=== PATIENT | female | born 1965 | race Caucasian/White ===

== ENCOUNTER 2017-09-15 15:59 | Emergency (ER) | payer SELFPAY ==
[~2017-09-15] VITALS: Ht 177.8 cm; Wt 62.0 kg
[~2017-09-15 15:59] MED LIST: OXYC-360 PO; Z.0.NO CURRENT MEDS
[2017-09-15 16:00] VITALS: BP 171/112; PULSE 102; RESP 16; TEMP 98.8; O2SAT 97
[2017-09-15 19:32] VITALS: BP 173/91; PULSE 98; RESP 16; TEMP 98; O2SAT 97
[2017-09-15] MEDS ORDERED: XANA1TAB2 PO (19:32)
[2017-09-15] MEDS ORDERED: ADDE10 PO (19:32)
[2017-09-15] MEDS ORDERED: FLUT50SP EACH NARE (19:47)
[2017-09-15] MEDS ORDERED: DOXY100C PO (19:47)
[2017-09-15] MEDS ORDERED: TYLETAB34 PO (19:47)
--- NOTE | 2017-09-15 19:47 | PD ---
HPI Chief Complaint: Oral / Dental Pain or Problem Time Seen by Provider: 19:26 Travel History International Travel<30 days: No Contact w/Intl Traveler<30days: No Traveled to known affect area: No History of Present Illness HPI Patient is a 52 year old female presenting for evaluation of sinus pressure, nasal congestion, rhinorrhea, facial swelling that has been ongoing for the last 3 days. Pt reports a hx of sinusitis. She is not currently taking any medications. She has not taken any medications to alleviate the pain. Symptoms are worse when laying down. She reports the pain is pressure like and a 5/10. She has no alleviating factors, onset was gradual over the last few days. She denies any fevers, chills, nausea, vomiting. She reports a very slight frontal headache. There is no photophobia, phonophobia, visual changes. She denies any dental pain. Patient reports a history of white coat syndrome. PFSH Past Medical History Depression: Yes Cardiac Catheterization: Yes Diminished Hearing: No Medical other: Yes (insomnia) Immunizations Current: Yes Tetanus Vaccination: Unknown Influenza Vaccination: No ?: Not Social History Alcohol Use: Yes (RARELY) Tobacco Use: Yes (/2 PPD) Substance Use: No Allergies-Medications (Allergen,Severity, Reaction): Coded Allergies: penicillin G (Unverified Allergy, Severe, UNKNOWN, 09/15/17) Reported Meds & Prescriptions Reported Meds & Active Scripts Active Review of Systems Except as stated in HPI: all other systems reviewed are Neg HENT: Positive: Headaches, Other (Right maxillary sinus pressure) Musculoskeletal: Positive: Edema Physical Exam Narrative GENERAL: Well-developed, well-nourished, alert female. Presenting in no acute distress. SKIN: Warm and dry. Edema to the right cheek, no significant erythema. Tenderness to palpation over right maxillary sinus. MOUTH: Mucous membranes moist, no lesions, tongue and gums appear normal. Missing dentition HEAD: Normocephalic. EYES: No scleral icterus. No injection or drainage. NECK: Supple, trachea midline. No JVD or lymphadenopathy. CARDIOVASCULAR: Regular rate and rhythm without murmurs, gallops, or rubs. RESPIRATORY: Breath sounds equal bilaterally. No accessory muscle use. GASTROINTESTINAL: Abdomen soft, non-tender, nondistended. MUSCULOSKELETAL: No cyanosis, or edema. BACK: Nontender without obvious deformity. No CVA tenderness. Data Data Last Documented VS Vital Signs Date Time Temp Pulse Resp B/P (MAP) Pulse Ox O2 Delivery O2 Flow Rate FiO2 09/15/17 16:00 98.8 102 16 171/112 (131) 97 [facility] Medical Decision Making Medical Screen Exam Complete: Yes Emergency Medical Condition: Yes Interpretation(s) Vital Signs Date Time Temp Pulse Resp B/P (MAP) Pulse Ox O2 Delivery O2 Flow Rate FiO2 09/15/17 16:00 98.8 102 16 171/112 (131) 97 Differential Diagnosis Sinusitis versus cellulitis versus dental abscess versus other Narrative Course 52-year-old female presenting with 3 days of increasing right maxillary sinus pain, pressure and mild edema to the right cheek. There is no significant erythema. Patient's vital signs are stable, she is slightly hypertensive on arrival however she states she checks her blood pressure at home is always normal. She reports a history of whitecoat syndrome. Physical examination appears consistent with sinusitis. Patient will be started on antibiotics now. She is encouraged to complete the course of antibiotics, she was encouraged to follow-up with her primary doctor or return to emergency department for any new worsening symptoms. Patient verbalized understanding of instructions. Patient stable for discharge. Diagnosis Primary Impression: Maxillary sinusitis Qualified Codes: J32.0 - Chronic maxillary sinusitis Referrals: Primary Care Physician 1 week Patient Instructions: General Instructions, Sinusitis (ED) Additional Instructions: Follow-up with your primary doctor Complete full course of antibiotics as prescribed Use nasal spray as directed Return to the emergency department for any new or worsening symptoms Med/Other Pt SpecificInfo: Prescription(s) given Scripts Acetaminophen-Codeine (Tylenol-Codeine #3) 300-30 mg Tab 1 TAB PO Q6H Y for PAIN, #10 TAB 0 Refills Prov: Galilea Lewis 09/15/17 Fluticasone Nasal Cherry (Fluticasone Nasal Cherry) 50 Mcg/Act Naspr 50 MCG EACH NARE BID for Allergy Management, #1 BOTTLE 0 Refills 50 mcg/spray Prov: Galilea Lewis 09/15/17 Doxycycline Hyclate (Doxycycline Hyclate) 100 Mg Cap 100 MG PO BID for Infection, #20 CAP 0 Refills Prov: Galilea Lewis 09/15/17 Disposition: 01 DISCHARGE HOME Condition: Stable Galilea Lewis Sep 15, 2017 19:47
== END 2017-09-15 20:05 | disposition home or self-care (01) ==
LOC: NEPD 15:59
DX: J32.0 Chronic maxillary sinusitis (principal); R51 Headache; R60.9 Edema, unspecified; F32.9 Major depressive disorder, single episode, unspecified; F17.200 Nicotine dependence, unspecified, uncomplicated; Z88.0 Allergy status to penicillin
CPT/HCPCS: 99283